=== PATIENT | male | born 1970 | race Caucasian/White ===

== ENCOUNTER 2017-05-29 13:23 | Emergency (ER) | payer OTHER ==
[~2017-05-29] VITALS: Ht 195.6 cm; Wt 91.5 kg
[~2017-05-29 13:23] MED LIST: ACETAMINOPHEN325 M1 PO; ALLOPURINOL300 MG PO; ATORVASTATIN CA80 MG PO; BENZTROPINE MESY1 MG PO; CALCIUM ANTACI500 MG PO; DEPAKOTE250 MG PO; DEPAKOTE500 MG PO; DITROPAN XL15 MG PO; EPIPEN ADU0.3 MG/0.3 IM; FLUPHENAZINE HCL5 MG PO; GABAPENTIN600 MG PO; GLUCAGEN1 MG IM; GLUCOSE4 GM PO; HUMALOG100 UNIT/1 SC; LANTUS 3 M100 UNITS1 SC; LEVEMIR FL100 UNIT/1 SC; LIPITOR80 MG PO; LISINOPRIL10 MG PO; MINERIN CREME454 GM TP; MIRALAX255 GM PO; NEURONTIN600 MG PO; NOVOLOG PE100 UNITS/ SC; ONE-A-DAY ESSE1 EAC1 PO; PROPRANOLOL HCL10 MG PO; PROTONIX40 MG PO; PYRIDIUM200 MG PO; SEROQUEL100 MG PO; SEROQUEL200 MG PO; SEROQUEL300 MG PO; TYLENOL REGULA325 MG PO; VASOTEC5 MG PO; VITAMIN D31000 UNI2 PO; VITAMIN D31000 UNIT PO; ZYLOPRIM300 MG PO
[2017-05-29 13:49] LABS: EOSINOPHIL (%) 0 % (0-5); HEMATOCRIT 34.9 % (38.0-50.0); IMMATURE GRANULOCYTE (%) 0.2 % (0.0-0.7); INSTRUMENT ABS NEUTROPHIL CT 7.4 K/uL; MCH 29.3 PG (29.0-34.0); MCHC 35.2 G/DL (30.0-36.0); MCV 83.1 FL (86-99); MEAN PLAT.VOLUME 10.5 uM^3 (9.0-12.4); MONOCYTE (%) 11.1 % (3-12); NEUTROPHIL (%) 78.1 % (45-76); NEUTROPHIL COUNT 7.4 K/uL (1.8-6.4); RBC DIS.WIDTH-CV 13.5 % (11.8-14.6); RBC DIS.WIDTH-SD 41.1 % (39-53); WHITE BLOOD COUNT 9.4 K/uL (4.1-10.2)
[2017-05-29 13:50] LABS: PLATELET COUNT 119 K/uL (156-360)
[2017-05-29 13:59] LABS: CHLORIDE 94 mEq/L (99-109); POTASSIUM 4.4 mEq/L (3.7-5.4); SODIUM 124 mEq/L (136-147)
[2017-05-29 14:01] LABS: GLUCOSE 197 mg/dL (70-99)
[2017-05-29 14:02] LABS: ANION GAP 9 MEQ/L (2-14)
[2017-05-29 14:05] LABS: GFR ESTIMATE (CALCULATED) > 59 mL/min/
[2017-05-29 14:06] LABS: UREA NITROGEN (BUN) 15 mg/dL (9-23)
[2017-05-29 15:11] LABS: ADD MIUA? YES; BILIRUBIN NEGATIVE; BLOOD NEGATIVE; COLOR YELLOW ((YELLOW)); GLUCOSE (STRIP) >=500; KETONES 5; LEUKOCYTES NEGATIVE; NITRITE NEGATIVE; PROTEIN (STRIP) 30; SPECIFIC GRAVITY 1.014 (1.000-1.030)
[2017-05-29 15:15] LABS: BACTERIA RARE /HPF; EPITHELIAL CELLS NONE SEEN /HPF; MUCUS TRACE /LPF; RED BLOOD CELLS 0-5 /HPF (0-5); UCUL ADDED? NO; WHITE BLOOD CELLS 0-5 /HPF (0-5)
[2017-05-29] MEDS ORDERED: MOTRIN800 MG PO (16:21)
[2017-05-29 16:32] VITALS: BP 105/56
== END 2017-05-29 16:34 | disposition home or self-care (01) ==
LOC: EME 13:23
PROVIDERS: Nurse Practitioner Family
DX: B34.9 Viral infection, unspecified (principal); R50.9 Fever, unspecified; R05 Cough; K21.9 Gastro-esophageal reflux disease without esophagitis; I10 Essential (primary) hypertension; E78.5 Hyperlipidemia, unspecified; E11.9 Type 2 diabetes mellitus without complications; Z79.4 Long term (current) use of insulin; Z87.891 Personal history of nicotine dependence
CPT/HCPCS: 71020; 80048; 81003; 83605; 85025; 87040; 87651 90; 87801; 99281; 99285; J1885; J7030

== ENCOUNTER 2017-05-30 19:02 | Inpatient (IN) | payer OTHER ==
[~2017-05-30] VITALS: Ht 190.5 cm; Wt 89.1 kg
[~2017-05-30 19:02] MED LIST changes: +MOTRIN800 MG PO
[2017-05-30 20:55] LABS: HEMATOCRIT 32.6 % (38.0-50.0); MCH 29.2 PG (29.0-34.0); MCHC 35.3 G/DL (30.0-36.0); MCV 82.7 FL (86-99); MEAN PLAT.VOLUME 10.8 uM^3 (9.0-12.4); PLATELET COUNT 106 K/uL (156-360); RBC DIS.WIDTH-CV 13.5 % (11.8-14.6); RBC DIS.WIDTH-SD 41.1 % (39-53); RED BLOOD COUNT 3.94 M/uL (4.00-5.50); WHITE BLOOD COUNT 8.5 K/uL (4.1-10.2)
[2017-05-30 21:07] LABS: CHLORIDE 97 mEq/L (99-109); POTASSIUM 4.1 mEq/L (3.7-5.4); SODIUM 129 mEq/L (136-147)
[2017-05-30 21:09] LABS: GLUCOSE 171 mg/dL (70-99)
[2017-05-30 21:11] LABS: ANION GAP 10 MEQ/L (2-14); TOTAL BILIRUBIN 0.6 mg/dL (0.0-1.0)
[2017-05-30 21:13] LABS: ALKALINE PHOSPHATASE 53 IU/L (3-129); GFR ESTIMATE (CALCULATED) > 59 mL/min/
[2017-05-30 21:14] LABS: UREA NITROGEN (BUN) 19 mg/dL (9-23)
[2017-05-30 21:16] LABS: LIPASE 38 U/L (1.0-51.0)
[2017-05-31] MEDS ORDERED: ATIVAN1 MG PO (01:36)
[2017-05-31] MEDS ORDERED: ATORVASTATIN CA20 MG PO (01:38)
[2017-05-31] MEDS ORDERED: ELFOLATE15 MG PO (01:39)
[2017-05-31] MEDS ORDERED: FLORINEF ACETA0.1 MG PO (01:40)
[2017-05-31] MEDS ORDERED: LATANOPROST2.5 ML BOTH EYES (01:40)
[2017-05-31] MEDS ORDERED: ZESTRIL2.5 MG PO (01:41)
[2017-05-31] MEDS ORDERED: POTASSIUM20 MEQ/11 PO (01:43)
[2017-05-31] MEDS ORDERED: METFORMIN HCL500 MG PO (01:45)
[2017-05-31] MEDS ORDERED: TRIPLE ANTIB28.35 GM TP (01:46)
[2017-05-31] MEDS ORDERED: ARTIFICIAL TEAR15 M1 BOTH EYES (01:47)
[2017-05-31] MEDS ORDERED: MOTRIN600 MG PO (01:48)
[2017-05-31] MEDS ORDERED: ZOFRAN4 MG PO (01:49)
[2017-05-31 01:56] VITALS: BP 126/74
[2017-05-31 02:30] LABS: ADD MIUA? NO; BILIRUBIN NEGATIVE; BLOOD NEGATIVE; COLOR YELLOW ((YELLOW)); GLUCOSE (STRIP) 50; KETONES 5; LEUKOCYTES NEGATIVE; NITRITE NEGATIVE; PROTEIN (STRIP) NEGATIVE; SPECIFIC GRAVITY 1.014 (1.000-1.030); UCUL ADDED? NO
[2017-05-31] MEDS ORDERED: BACTRIM,SEPT1 TABLET PO ×2 (02:51→09:39)
[2017-05-31] MEDS ORDERED: MELATONIN5 M1 PO (02:52)
[2017-05-31 05:58] LABS: POINT-OF-CARE METER ID UU14208753
[2017-05-31 07:10] LABS: ALKALINE PHOSPHATASE 40 IU/L (3-129); ANION GAP 8 MEQ/L (2-14); CHLORIDE 98 MEQ/L (99-109); GFR ESTIMATE (CALCULATED) > 59 mL/min/; GLUCOSE 125 mg/dL (70-99); POTASSIUM 4.2 MEQ/L (3.7-5.4); SAMPLE HEMOLYSIS CHECK 1; SAMPLE ICTERIC CHECK 0; SAMPLE LIPEMIA CHECK 0; SODIUM 129 MEQ/L (136-147); TOTAL BILIRUBIN 0.6 MG/DL (0.0-1.0); UREA NITROGEN (BUN) 11 mg/dL (9-23)
[2017-05-31 08:00] VITALS: BP 134/85
[2017-05-31 11:50] VITALS: BP 136/81
[2017-05-31 16:23] VITALS: BP 130/85
[2017-05-31 19:35] VITALS: BP 142/79
[2017-05-31 23:07] VITALS: BP 127/78
[2017-06-01 04:07] VITALS: BP 128/84
[2017-06-01 06:29] LABS: POINT-OF-CARE METER ID UU14208753
[2017-06-01 08:56] VITALS: BP 133/78
[2017-06-01 15:15] VITALS: BP 135/78
[2017-06-02 00:19] VITALS: BP 143/79
[2017-06-02 06:52] LABS: POINT-OF-CARE METER ID UU14188577
[2017-06-02 08:24] VITALS: BP 135/92
[2017-06-02 11:39] LABS: POINT-OF-CARE METER ID UU14188577
[2017-06-02] MEDS ORDERED: LEVAQUIN500 MG PO (15:04)
[2017-06-02 15:58] VITALS: BP 162/95
[2017-06-02 16:17] LABS: POINT-OF-CARE METER ID UU14188577
== END 2017-06-02 17:30 | DRG 194 ==
LOC: EME 19:02 → 3EAST 23:35 → EDOF 23:35 → ENRESERV 05-31 → 3EAST 05-31 01:41
PROVIDERS: Internal Medicine; Physician Assistant
DX: J18.0 Bronchopneumonia, unspecified organism (principal); F39 Unspecified mood [affective] disorder; Z79.4 Long term (current) use of insulin; E11.9 Type 2 diabetes mellitus without complications; I10 Essential (primary) hypertension; E78.5 Hyperlipidemia, unspecified; F79 Unspecified intellectual disabilities; E55.9 Vitamin D deficiency, unspecified; K21.9 Gastro-esophageal reflux disease without esophagitis; L03.115 Cellulitis of right lower limb; Z87.891 Personal history of nicotine dependence; H40.9 Unspecified glaucoma; R10.9 Unspecified abdominal pain; M79.674 Pain in right toe(s); S91.102A Unspecified open wound of left great toe without damage to nail, initial encounter
CPT/HCPCS: 71020; 74176; 80048; 80053; 80202; 81003; 82948; 83605; 83690; 85025; 85027; 87040; 87651 90; 87801; 99281; 99285; J1650; J1815; J1885; J1956; J3370; J7030

== ENCOUNTER 2017-07-21 16:52 | Emergency (ER) | payer OTHER ==
[~2017-07-21] VITALS: Ht 205.7 cm; Wt 93.5 kg
[~2017-07-21 16:52] MED LIST changes: +ARTIFICIAL TEAR15 M1 BOTH EYES; +ATIVAN1 MG PO; +ATORVASTATIN CA20 MG PO; +BACTRIM,SEPT1 TABLET PO; +ELFOLATE15 MG PO; +FLORINEF ACETA0.1 MG PO; +LATANOPROST2.5 ML BOTH EYES; +LEVAQUIN500 MG PO; +MELATONIN5 M1 PO; +METFORMIN HCL500 MG PO; +MOTRIN600 MG PO; +POTASSIUM20 MEQ/11 PO; +TRIPLE ANTIB28.35 GM TP; +ZESTRIL2.5 MG PO; +ZOFRAN4 MG PO
[2017-07-21] MEDS ORDERED: MOTRIN600 MG PO (19:26)
[2017-07-21 20:11] VITALS: BP 134/80
== END 2017-07-21 20:13 ==
LOC: EME 16:52
DX: S40.011A Contusion of right shoulder, initial encounter (principal); W01.198A Fall on same level from slipping, tripping and stumbling with subsequent striking against other object, initial encounter; E11.9 Type 2 diabetes mellitus without complications; Z79.84 Long term (current) use of oral hypoglycemic drugs; I10 Essential (primary) hypertension; E78.5 Hyperlipidemia, unspecified; Z87.891 Personal history of nicotine dependence
CPT/HCPCS: 73030; 99281; 99283